=== PATIENT | male | born 1975 | race Caucasian/White ===

== ENCOUNTER 2019-12-31 13:50 | Inpatient (IN) ==
[2019-12-31] MEDS ORDERED: Isovue-370 500 ML BOTTLE IVP ONE (14:18)
[2019-12-31] MEDS ORDERED: *HR* FentaNYL (PF) 100 MCG/2 ML VIAL IVP ONE (14:19)
[2019-12-31] MEDS ORDERED: 0.9 % Sodium Chloride 1,000 ML IVC ONE ×4 (14:19→21:53)
[2019-12-31 14:34] LABS: Hemoglobin 16.3 g/dL (12.9-16.9); Mean Corpuscular HGB Conc 35.4 g/dL (31.6-35.5); Mean Corpuscular Volume 90.2 fL (83.0-100.0); Platelet Count 117 K/mcL (140-400); Red Cell Distribution Width 11.9 % (11.5-14.5); White Blood Count 23.7 K/mcL (4.3-11.1)
[2019-12-31 14:44] LABS: BUN/Creatinine Ratio 13 (6-26); Blood Urea Nitrogen 19 mg/dL (6-20); Calcium 8.3 mg/dL (8.6-10.3); Carbon Dioxide 17 mEq/L (23-29); Chloride 92 mEq/L (98-107); Glucose 141 mg/dL (70-105); Osmolality,Calculated 267 (280-300); Potassium 3.6 mEq/L (3.5-5.1); Sodium 126 mEq/L (136-145); eGFR For African Americans > 60 (> 60); eGFR For Non-African Americans 53 (> 60)
[2019-12-31 14:59] LABS: Troponin I 0.04 ng/mL (< 0.04)
[2019-12-31 15:07] LABS: Monocytes # 1.4 K/mcL (0.0-1.3); Neutrophils # 21.3 K/mcL (1.6-8.9); Platelet Estimate Slight Decrease (Normal)
[2019-12-31] MEDS ORDERED: Piperacillin/Tazobactam 3.375 GM in 0.9 % Sodium Chloride Mini Bag 100 ML IVPB ONE (15:56)
[2019-12-31] MEDS ORDERED: Clindamycin 600 MG/50 ML 600 MG/50 ML IV.SOLN IVPB STA (15:56)
[2019-12-31 16:07] LABS: Amphetamine Screen,Urine Negative ng/mL (Cutoff=1000); Barbiturate Screen,Urine Negative ng/mL (Cutoff=200); Benzodiazepines Screen,Urine Negative ng/mL (Cutoff=200); Cannabinoid Screen,Urine Negative ng/mL (Cutoff = 50); Cocaine Screen,Urine Negative ng/mL (Cutoff= 300); Opiate Screen,Urine Negative ng/mL (Cutoff=300); Phencyclidine Screen,Urine Negative ng/mL (Cutoff=25)
[2019-12-31 16:42] LABS: Alanine Aminotransferase 24 Units/L (7-52); Albumin 3.5 g/dL (3.5-5.7); Alkaline Phosphatase 77 Units/L (34-104); Aspartate Amino Transferase 43 Units/L (13-39); Bilirubin,Indirect 1.9 mg/dL (0.0-1.0); Bilirubin,Total 2.9 mg/dL (0.3-1.0); Globulin 3.6 g/dL (2.4-3.5); Lipase 9 Units/L (11-82); Total Protein 7.1 g/dL (6.4-8.9)
[2019-12-31] MEDS ORDERED: *HR* OxyCODONE Immed Rel 5 MG TABLET PO PRN (17:01)
[2019-12-31] MEDS ORDERED: Ondansetron 4 MG/2 ML VIAL IVP PRN (17:17)
[2019-12-31] MEDS ORDERED: Naloxone 0.4 MG/ML INJ IVP PRN (17:17)
[2019-12-31] MEDS: 0.9 % Sodium Chloride 1,000 ML IVC SCH (19:50)
[2020-01-01] MEDS ORDERED: 0.9 % Sodium Chloride 1,000 ML IVC ONE
[2020-01-01] MEDS: Clindamycin 600 MG/50 ML 600 MG/50 ML IV.SOLN IVPB SCH ×4 (00:01→23:14)
[2020-01-01] MEDS ORDERED: 0.9 % Sodium Chloride 500 ML IVC ONE (00:49)
[2020-01-01] MEDS: 0.9 % Sodium Chloride 1,000 ML IVC SCH ×2 (01:32→04:29)
[2020-01-01] MEDS ORDERED: Norepinephrine 4 MG/254 ML IV.SOLN IVC SCH ×2 (02:45→17:47)
[2020-01-01 03:18] LABS: VBG HCO3 21 mEq/L (21-27); VBG PCO2 37 mmHg (41-51); VBG PH 7.36 pH Units (7.32-7.42); VBG PO2 101 mmHg (25-50)
[2020-01-01 03:23] LABS: INR 2.1; Prothrombin Time 23.8 Seconds (9.4-12.1)
[2020-01-01 03:25] LABS: Hematocrit 35.3 % (37.5-50.1); Hemoglobin 12.3 g/dL (12.9-16.9); Immature Platelets 8.6 % (1.1-6.1); Mean Corpuscular HGB Conc 34.8 g/dL (31.6-35.5); Mean Corpuscular Hemoglobin 31.6 pg (28.0-33.3); Mean Corpuscular Volume 90.7 fL (83.0-100.0); Mean Platelet Volume 12.7 fL (9.4-12.4); Red Blood Count 3.89 M/mcL (4.19-5.50); Red Cell Distribution Width 12.1 % (11.5-14.5); White Blood Count 7.3 K/mcL (4.3-11.1)
[2020-01-01] MEDS: Vancomycin 1,250 MG/262.5 ML IV.SOLN IVPB SCH ×2 (03:25→15:34)
[2020-01-01 03:37] LABS: BUN/Creatinine Ratio 26 (6-26); Blood Urea Nitrogen 18 mg/dL (6-20); Calcium 6.8 mg/dL (8.6-10.3); Carbon Dioxide 21 mEq/L (23-29); Chloride 106 mEq/L (98-107); Glucose 137 mg/dL (70-105); Osmolality,Calculated 282 (280-300); Potassium 3.4 mEq/L (3.5-5.1); Sodium 134 mEq/L (136-145); eGFR For African Americans > 60 (> 60); eGFR For Non-African Americans > 60 (> 60)
[2020-01-01 03:38] LABS: Albumin 2.4 g/dL (3.5-5.7); Bilirubin,Total 1.7 mg/dL (0.3-1.0); Globulin 2.3 g/dL (2.4-3.5); Total Protein 4.7 g/dL (6.4-8.9)
[2020-01-01 03:41] LABS: Bilirubin,Direct 0.8 mg/dL (0.0-0.2); Bilirubin,Indirect 0.9 mg/dL (0.0-1.0)
[2020-01-01] MEDS ORDERED: Potassium Chloride 40 MEQ, Lidocaine 1% 2 ML in 0.9 % Sodium Chloride 500 ML IVPB ONE (04:05)
[2020-01-01 04:37] LABS: Platelet Count 58 K/mcL (140-400)
[2020-01-01 04:39] LABS: Lymphocytes # 0.4 K/mcL (0.6-4.6); Monocytes # 0.4 K/mcL (0.0-1.3); Neutrophils # 6.4 K/mcL (1.6-8.9)
[2020-01-01 04:40] LABS: Anisocytosis 1+ (Not Present); Burr Cells 1+ (Not Present); Macrocytosis Present (Not Present); Platelet Estimate Decreased (Normal); Polychromasia 1+ (Not Present); Toxic Vacuolation Present (Not Present)
[2020-01-01 05:16] LABS: Magnesium 1.8 mg/dL (1.6-2.6); Phosphorous 1.8 mg/dL (2.7-4.5)
[2020-01-01 05:17] LABS: VBG Ionized Calcium 0.99 mmol/L (1.15-1.35)
[2020-01-01] MEDS: Calcium Gluconate 1gm/50mL 1 GM/50 ML BAG IVPB PRN ×2 (05:53→15:37)
[2020-01-01] MEDS ORDERED: Perflutren Lipid Microsphere 1.3 ML in 0.9 % Sodium Chloride 8.7 ML IVP PRN ×2 (07:12→17:47)
[2020-01-01] MEDS: Piperacillin/Tazobactam 3.375 GM in 0.9 % Sodium Chloride Mini Bag 100 ML IVPB SCH ×4 (08:33→23:15)
[2020-01-01 13:53] LABS: Alanine Aminotransferase 18 Units/L (7-52); Albumin 2.5 g/dL (3.5-5.7); Alkaline Phosphatase 43 Units/L (34-104); Aspartate Amino Transferase 34 Units/L (13-39); BUN/Creatinine Ratio 29 (6-26); Bilirubin,Total 1.9 mg/dL (0.3-1.0); Blood Urea Nitrogen 20 mg/dL (6-20); Calcium 6.9 mg/dL (8.6-10.3); Carbon Dioxide 20 mEq/L (23-29); Chloride 106 mEq/L (98-107); Globulin 2.5 g/dL (2.4-3.5); Glucose 98 mg/dL (70-105); Magnesium 2.4 mg/dL (1.6-2.6); Osmolality,Calculated 283 (280-300); Phosphorous 2.4 mg/dL (2.7-4.5); Potassium 3.9 mEq/L (3.5-5.1); Sodium 135 mEq/L (136-145); eGFR For African Americans > 60 (> 60); eGFR For Non-African Americans > 60 (> 60)
[2020-01-01] MEDS ORDERED: *HR* Propofol 200 MG/20 ML VIAL IVP ONE (16:00)
[2020-01-01] MEDS ORDERED: Lidocaine -MPF 2% 2 ML VIAL ONE (16:00)
[2020-01-01] MEDS ORDERED: *HR* FentaNYL (PF) 100 MCG/2 ML VIAL ONE (16:00)
[2020-01-01] MEDS ORDERED: *HR* Midazolam HCl 2 MG/2 ML VIAL ONE (16:00)
[2020-01-01] MEDS ORDERED: Lidocaine -MPF 4% 5 ML AMPUL ONE (16:52)
[2020-01-01] MEDS ORDERED: Acetaminophen IV 1,000 MG/100 ML INFUS..BTL ONE (16:54)
[2020-01-01] MEDS ORDERED: Famotidine 20 MG/2 ML VIAL ONE (16:54)
[2020-01-01] MEDS ORDERED: *HR* Succinylcholine 200 MG/10 ML VIAL IVP ONE (17:01)
[2020-01-01] MEDS ORDERED: *HR* HYDROMORPHONE 2 MG/ML VIAL ONE (17:18)
[2020-01-01] MEDS ORDERED: Dexamethasone 4 MG/ML VIAL ONE (17:36)
[2020-01-01] MEDS ORDERED: Ondansetron 4 MG/2 ML VIAL ONE (17:36)
[2020-01-01] MEDS ORDERED: *HR* OxyCODONE Immed Rel 5 MG TABLET PO PRN (17:47)
[2020-01-01] MEDS ORDERED: Calcium Gluconate 1gm/50mL 1 GM/50 ML BAG IVPB PRN (17:47)
[2020-01-01] MEDS ORDERED: Ondansetron 4 MG/2 ML VIAL IVP PRN (17:47)
[2020-01-01] MEDS ORDERED: Naloxone 0.4 MG/ML INJ IVP PRN (17:47)
[2020-01-01] MEDS ORDERED: *HR* Heparin 5,000 UNIT/ML VIAL SQ SCH (18:00)
[2020-01-01] MEDS: *HR* Heparin 5,000 UNIT/ML VIAL SQ SCH (18:13)
[2020-01-02] MEDS ORDERED: Vancomycin 1,250 MG/262.5 ML IV.SOLN IVPB SCH (03:00)
[2020-01-02 04:20] LABS: VBG Ionized Calcium 1.03 mmol/L (1.15-1.35)
[2020-01-02 04:22] LABS: Hematocrit 31.2 % (37.5-50.1); Hemoglobin 10.3 g/dL (12.9-16.9); Immature Platelets 9.4 % (1.1-6.1); Mean Corpuscular Hemoglobin 30.6 pg (28.0-33.3); Mean Corpuscular Volume 92.6 fL (83.0-100.0); Mean Platelet Volume 12.4 fL (9.4-12.4); Monocytes # 0.3 K/mcL (0.0-1.3); Nucleated Red Blood Cells 0.3 /100 WBC (0); Red Blood Count 3.37 M/mcL (4.19-5.50); Red Cell Distribution Width 12.6 % (11.5-14.5)
[2020-01-02 04:43] LABS: Alanine Aminotransferase 18 Units/L (7-52); Albumin 2.2 g/dL (3.5-5.7); Alkaline Phosphatase 39 Units/L (34-104); Aspartate Amino Transferase 30 Units/L (13-39); BUN/Creatinine Ratio 37 (6-26); Bilirubin,Direct 0.9 mg/dL (0.0-0.2); Bilirubin,Indirect 0.6 mg/dL (0.0-1.0); Bilirubin,Total 1.5 mg/dL (0.3-1.0); Blood Urea Nitrogen 25 mg/dL (6-20); Calcium 7.1 mg/dL (8.6-10.3); Carbon Dioxide 25 mEq/L (23-29); Chloride 109 mEq/L (98-107); Globulin 2.3 g/dL (2.4-3.5); Glucose 140 mg/dL (70-105); Osmolality,Calculated 293 (280-300); Potassium 4.1 mEq/L (3.5-5.1); Sodium 138 mEq/L (136-145); Total Protein 4.5 g/dL (6.4-8.9); eGFR For African Americans > 60 (> 60); eGFR For Non-African Americans > 60 (> 60)
[2020-01-02] MEDS: *HR* Heparin 5,000 UNIT/ML VIAL SQ SCH ×2 (05:03→17:34)
[2020-01-02 05:12] LABS: Platelet Count 58 K/mcL (140-400)
[2020-01-02 05:34] LABS: Lymphocytes # 0.8 K/mcL (0.6-4.6); Neutrophils # 5.9 K/mcL (1.6-8.9); Platelet Estimate Decreased (Normal)
[2020-01-02] MEDS: Clindamycin 600 MG/50 ML 600 MG/50 ML IV.SOLN IVPB SCH ×3 (07:49→23:31)
[2020-01-02] MEDS: Piperacillin/Tazobactam 3.375 GM in 0.9 % Sodium Chloride Mini Bag 100 ML IVPB SCH (07:54)
[2020-01-02] MEDS ORDERED: Naloxone 0.4 MG/ML INJ IVP PRN (14:05)
[2020-01-02] MEDS ORDERED: Ondansetron 4 MG/2 ML VIAL IVP PRN (14:05)
[2020-01-02 14:38] LABS: Magnesium 2.8 mg/dL (1.6-2.6); Phosphorous 1.6 mg/dL (2.7-4.5)
[2020-01-02] MEDS ORDERED: Vancomycin 1,500 MG/265 ML IV.SOLN IVPB SCH (15:00)
[2020-01-02] MEDS: Vancomycin 1,500 MG/265 ML IV.SOLN IVPB SCH (15:42)
[2020-01-02] MEDS: *HR* OxyCODONE Immed Rel 5 MG TABLET PO PRN (19:45)
[2020-01-03] MEDS: *HR* OxyCODONE Immed Rel 5 MG TABLET PO PRN ×2 (02:35→20:10)
[2020-01-03] MEDS: *HR* Heparin 5,000 UNIT/ML VIAL SQ SCH ×2 (05:36→16:46)
[2020-01-03] MEDS: Vancomycin 1,500 MG/265 ML IV.SOLN IVPB SCH ×2 (05:46→15:38)
[2020-01-03 06:25] LABS: Hemoglobin 10.8 g/dL (12.9-16.9); Nucleated Red Blood Cells 0.3 /100 WBC (0)
[2020-01-03 06:26] LABS: Hematocrit 31.3 % (37.5-50.1); Immature Platelets 7.2 % (1.1-6.1); Mean Corpuscular HGB Conc 34.5 g/dL (31.6-35.5); Mean Corpuscular Hemoglobin 30.9 pg (28.0-33.3); Mean Corpuscular Volume 89.7 fL (83.0-100.0); Mean Platelet Volume 11.6 fL (9.4-12.4); Red Blood Count 3.49 M/mcL (4.19-5.50); Red Cell Distribution Width 12.6 % (11.5-14.5); White Blood Count 15.3 K/mcL (4.3-11.1)
[2020-01-03] MEDS: Clindamycin 600 MG/50 ML 600 MG/50 ML IV.SOLN IVPB SCH ×2 (06:35→14:47)
[2020-01-03 06:42] LABS: Platelet Count 89 K/mcL (140-400)
[2020-01-03 06:44] LABS: BUN/Creatinine Ratio 46 (6-26); Blood Urea Nitrogen 26 mg/dL (6-20); Calcium 7.2 mg/dL (8.6-10.3); Carbon Dioxide 26 mEq/L (23-29); Chloride 104 mEq/L (98-107); Glucose 111 mg/dL (70-105); Osmolality,Calculated 285 (280-300); Potassium 3.2 mEq/L (3.5-5.1); Sodium 135 mEq/L (136-145); eGFR For African Americans > 60 (> 60); eGFR For Non-African Americans > 60 (> 60)
[2020-01-03 07:04] LABS: Lymphocytes # 0.9 K/mcL (0.6-4.6); Neutrophils # 14.4 K/mcL (1.6-8.9)
[2020-01-03 07:05] LABS: Platelet Estimate Decreased (Normal)
[2020-01-03] MEDS: 0.9 % Sodium Chloride 1,000 ML IVC SCH ×2 (11:07→20:08)
[2020-01-04] MEDS: 0.9 % Sodium Chloride 1,000 ML IVC SCH ×2 (02:30→15:04)
[2020-01-04] MEDS: *HR* OxyCODONE Immed Rel 5 MG TABLET PO PRN (02:30)
[2020-01-04] MEDS: Vancomycin 1,500 MG/265 ML IV.SOLN IVPB SCH (02:36)
[2020-01-04 02:39] LABS: White Blood Count 10.2 K/mcL (4.3-11.1)
[2020-01-04 02:41] LABS: Hematocrit 29.8 % (37.5-50.1); Immature Platelets 5.2 % (1.1-6.1); Lymphocytes # 1.2 K/mcL (0.6-4.6); Mean Corpuscular HGB Conc 33.6 g/dL (31.6-35.5); Mean Corpuscular Volume 92.3 fL (83.0-100.0); Mean Platelet Volume 11.6 fL (9.4-12.4); Nucleated Red Blood Cells 0.4 /100 WBC (0); Red Blood Count 3.23 M/mcL (4.19-5.50); Red Cell Distribution Width 12.6 % (11.5-14.5)
[2020-01-04 02:45] LABS: Platelet Count 82 K/mcL (140-400)
[2020-01-04 02:54] LABS: BUN/Creatinine Ratio 39 (6-26); Blood Urea Nitrogen 19 mg/dL (6-20); Carbon Dioxide 26 mEq/L (23-29); Chloride 107 mEq/L (98-107); Glucose 92 mg/dL (70-105); Osmolality,Calculated 288 (280-300); Potassium 3.2 mEq/L (3.5-5.1); Sodium 138 mEq/L (136-145); eGFR For African Americans > 60 (> 60); eGFR For Non-African Americans > 60 (> 60)
[2020-01-04] MEDS: Vancomycin 1,750 MG/517.5 ML IV.SOLN IVPB SCH ×2 (03:18→16:12)
[2020-01-04] MEDS: *HR* Heparin 5,000 UNIT/ML VIAL SQ SCH ×2 (04:58→16:16)
[2020-01-04 05:16] LABS: Monocytes # 0.2 K/mcL (0.0-1.3); Neutrophils # 8.8 K/mcL (1.6-8.9); Platelet Estimate Decreased (Normal)
[2020-01-05] MEDS: Vancomycin 1,750 MG/517.5 ML IV.SOLN IVPB SCH (03:12)
[2020-01-05] MEDS: 0.9 % Sodium Chloride 1,000 ML IVC SCH ×2 (03:12→14:02)
[2020-01-05] MEDS: *HR* Heparin 5,000 UNIT/ML VIAL SQ SCH ×2 (06:46→17:57)
[2020-01-05 07:02] LABS: Hematocrit 32.5 % (37.5-50.1); Hemoglobin 11.1 g/dL (12.9-16.9); Mean Corpuscular HGB Conc 34.2 g/dL (31.6-35.5); Mean Corpuscular Hemoglobin 31.8 pg (28.0-33.3); Mean Corpuscular Volume 93.1 fL (83.0-100.0); Platelet Count 102 K/mcL (140-400); Red Blood Count 3.49 M/mcL (4.19-5.50); Red Cell Distribution Width 13.2 % (11.5-14.5)
[2020-01-05 07:11] LABS: BUN/Creatinine Ratio 25 (6-26); Blood Urea Nitrogen 12 mg/dL (6-20); Calcium 6.7 mg/dL (8.6-10.3); Carbon Dioxide 24 mEq/L (23-29); Chloride 106 mEq/L (98-107); Glucose 79 mg/dL (70-105); Osmolality,Calculated 281 (280-300); Potassium 3.4 mEq/L (3.5-5.1); Sodium 136 mEq/L (136-145); eGFR For African Americans > 60 (> 60); eGFR For Non-African Americans > 60 (> 60)
[2020-01-05 07:22] LABS: Anisocytosis 1+ (Not Present); Lymphocytes # 0.6 K/mcL (0.6-4.6); Monocytes # 0.3 K/mcL (0.0-1.3); Neutrophils # 12.6 K/mcL (1.6-8.9); Platelet Estimate Slight Decrease (Normal); Toxic Granulation Present (Not Present)
[2020-01-05] MEDS: *HR* OxyCODONE Immed Rel 5 MG TABLET PO PRN (09:00)
[2020-01-05] MEDS ORDERED: Simethicone 80 MG TAB.CHEW PO PRN (10:26)
[2020-01-05] MEDS: Lactobacillus 1 EACH CAP.SPRINK PO SCH ×2 (11:10→22:07)
[2020-01-05] MEDS: Vancomycin 1,500 MG/265 ML IV.SOLN IVPB SCH (16:43)
[2020-01-05] MEDS ORDERED: cefTRIAXone 1,000 MG in Water for inj. (sterile) 10 ML IVP SCH (19:00)
[2020-01-05] MEDS: cefTRIAXone 1,000 MG in Water for inj. (sterile) 10 ML IVP SCH (22:06)
[2020-01-06] MEDS: Vancomycin 1,500 MG/265 ML IV.SOLN IVPB SCH ×3 (00:31→10:42)
[2020-01-06] MEDS: *HR* Heparin 5,000 UNIT/ML VIAL SQ SCH ×2 (05:01→17:17)
[2020-01-06 07:02] LABS: Hemoglobin 10.6 g/dL (12.9-16.9)
[2020-01-06 07:04] LABS: Basophils # 0.1 K/mcL (0.0-0.2); Basophils % 0.7 %; Eosinophils # 0.1 K/mcL (0.0-0.6); Eosinophils % 1.3 %; Immature Granulocytes % 6.8 % (0-4); Immature Platelets 4.7 % (1.1-6.1); Lymphocytes # 1.1 K/mcL (0.6-4.6); Lymphocytes % 11.8 %; Mean Corpuscular HGB Conc 33.1 g/dL (31.6-35.5); Mean Corpuscular Hemoglobin 31.1 pg (28.0-33.3); Mean Corpuscular Volume 93.8 fL (83.0-100.0); Mean Platelet Volume 10.9 fL (9.4-12.4); Monocytes # 0.3 K/mcL (0.0-1.3); Monocytes % 3.4 %; Nucleated Red Blood Cells 0.2 /100 WBC (0); Red Blood Count 3.41 M/mcL (4.19-5.50); Red Cell Distribution Width 13.6 % (11.5-14.5); White Blood Count 9.2 K/mcL (4.3-11.1)
[2020-01-06 07:11] LABS: Platelet Count 88 K/mcL (140-400)
[2020-01-06 07:16] LABS: INR 1.8; Prothrombin Time 20.6 Seconds (9.4-12.1)
[2020-01-06 07:23] LABS: Albumin 2.1 g/dL (3.5-5.7)
[2020-01-06 07:24] LABS: BUN/Creatinine Ratio 27 (6-26); Blood Urea Nitrogen 13 mg/dL (6-20); Calcium 7.3 mg/dL (8.6-10.3); Carbon Dioxide 26 mEq/L (23-29); Chloride 107 mEq/L (98-107); Glucose 76 mg/dL (70-105); Osmolality,Calculated 285 (280-300); Potassium 4.1 mEq/L (3.5-5.1); Sodium 138 mEq/L (136-145); eGFR For African Americans > 60 (> 60); eGFR For Non-African Americans > 60 (> 60)
[2020-01-06] MEDS: Furosemide 40 MG TABLET PO SCH (09:40)
[2020-01-06] MEDS: Lactobacillus 1 EACH CAP.SPRINK PO SCH ×2 (09:40→19:48)
[2020-01-06] MEDS: Vancomycin 1,750 MG/517.5 ML IV.SOLN IVPB SCH (10:40)
[2020-01-06 10:58] LABS: Albumin/Globulin Ratio 0.7 (1.1-2.2); Bilirubin,Direct 0.5 mg/dL (0.0-0.2); Bilirubin,Indirect 0.7 mg/dL (0.0-1.0); Bilirubin,Total 1.2 mg/dL (0.3-1.0); Globulin 2.9 g/dL (2.4-3.5)
[2020-01-06] MEDS ORDERED: Lactulose Oral Soln 20 GM/30 ML UDC PO ONE (11:04)
[2020-01-06] MEDS: Albumin 25% 25gram/100mL 25 GM/100 ML IV.SOLN IVPB SCH ×3 (11:40→19:50)
[2020-01-06] MEDS: cefTRIAXone 1,000 MG in Water for inj. (sterile) 10 ML IVP SCH (17:17)
[2020-01-06] MEDS: Vancomycin 2,000 MG/520 ML IV.SOLN IVPB SCH (21:19)
[2020-01-07] MEDS: Albumin 25% 25gram/100mL 25 GM/100 ML IV.SOLN IVPB SCH ×4 (00:22→19:40)
[2020-01-07 00:40] LABS: RBC,Peritoneal Fluid < 2000 RBC/mcL
[2020-01-07 01:16] LABS: Amylase,Peritoneal Fluid 62 Units/L (No Ref Range); Basophils,Peritoneal Fluid 0 %; Eosinophils,Peritoneal Fluid 0 %; Glucose,Peritoneal Fluid 87 mg/dL (No Ref Range); LDH,Peritoneal Fluid < 25 Units/L (No Ref Range); Total Protein,Peritoneal Fluid < 2.0 g/dL
[2020-01-07 01:17] LABS: Appearance of Peritoneal Fl CLEAR (Clear)
[2020-01-07 01:23] LABS: Red Cell Distribution Width 13.4 % (11.5-14.5)
[2020-01-07 01:25] LABS: Hematocrit 27.8 % (37.5-50.1); Hemoglobin 9.2 g/dL (12.9-16.9); Immature Platelets 4.5 % (1.1-6.1); Mean Corpuscular HGB Conc 33.1 g/dL (31.6-35.5); Mean Corpuscular Hemoglobin 31.4 pg (28.0-33.3); Mean Corpuscular Volume 94.9 fL (83.0-100.0); Mean Platelet Volume 10.8 fL (9.4-12.4); Monocytes # 0.2 K/mcL (0.0-1.3); Nucleated Red Blood Cells 0.4 /100 WBC (0); Red Blood Count 2.93 M/mcL (4.19-5.50); White Blood Count 5.1 K/mcL (4.3-11.1)
[2020-01-07 01:39] LABS: BUN/Creatinine Ratio 26 (6-26); Blood Urea Nitrogen 13 mg/dL (6-20); Calcium 7.8 mg/dL (8.6-10.3); Carbon Dioxide 29 mEq/L (23-29); Chloride 107 mEq/L (98-107); Glucose 89 mg/dL (70-105); Osmolality,Calculated 288 (280-300); Potassium 3.5 mEq/L (3.5-5.1); Sodium 139 mEq/L (136-145); eGFR For African Americans > 60 (> 60); eGFR For Non-African Americans > 60 (> 60)
[2020-01-07 01:47] LABS: Platelet Count 92 K/mcL (140-400)
[2020-01-07 02:45] LABS: Basophils # 0.2 K/mcL (0.0-0.2); Lymphocytes # 0.9 K/mcL (0.6-4.6); Neutrophils # 3.7 K/mcL (1.6-8.9)
[2020-01-07 02:46] LABS: Platelet Estimate Slight Decrease (Normal)
[2020-01-07] MEDS: *HR* Heparin 5,000 UNIT/ML VIAL SQ SCH ×2 (04:58→17:51)
[2020-01-07 08:54] LABS: Alanine Aminotransferase 18 Units/L (7-52); Albumin 2.8 g/dL (3.5-5.7); Albumin/Globulin Ratio 1.1 (1.1-2.2); Alkaline Phosphatase 63 Units/L (34-104); Aspartate Amino Transferase 29 Units/L (13-39); Bilirubin,Direct 0.5 mg/dL (0.0-0.2); Bilirubin,Indirect 0.7 mg/dL (0.0-1.0); Bilirubin,Total 1.2 mg/dL (0.3-1.0); Globulin 2.5 g/dL (2.4-3.5); Total Protein 5.3 g/dL (6.4-8.9)
[2020-01-07] MEDS: Vancomycin 2,000 MG/520 ML IV.SOLN IVPB SCH ×2 (09:05→21:57)
[2020-01-07] MEDS: *HR* OxyCODONE Immed Rel 5 MG TABLET PO PRN (09:06)
[2020-01-07] MEDS: Furosemide 40 MG TABLET PO SCH (09:07)
[2020-01-07] MEDS: Lactobacillus 1 EACH CAP.SPRINK PO SCH ×2 (09:07→21:58)
[2020-01-07] MEDS: Famotidine 20 MG TABLET PO SCH ×2 (14:08→21:58)
[2020-01-07] MEDS ORDERED: Albumin 25% 25gram/100mL 25 GM/100 ML IV.SOLN IVPB SCH (14:15)
[2020-01-07] MEDS: cefTRIAXone 1,000 MG in Water for inj. (sterile) 10 ML IVP SCH (17:51)
[2020-01-07 18:00] LABS: Fluid Source for Albumin PERITONEAL FL
[2020-01-08] MEDS: Albumin 25% 25gram/100mL 25 GM/100 ML IV.SOLN IVPB SCH ×4 (01:08→19:36)
[2020-01-08 02:22] LABS: Mean Corpuscular HGB Conc 32.6 g/dL (31.6-35.5); Mean Corpuscular Volume 95.8 fL (83.0-100.0); Red Cell Distribution Width 13.8 % (11.5-14.5)
[2020-01-08 02:24] LABS: Basophils % 0.3 %; Eosinophils # 0.1 K/mcL (0.0-0.6); Eosinophils % 2.1 %; Hematocrit 27.3 % (37.5-50.1); Hemoglobin 8.9 g/dL (12.9-16.9); Immature Granulocytes % 3.4 % (0-4); Immature Platelets 3.2 % (1.1-6.1); Lymphocytes # 1.2 K/mcL (0.6-4.6); Lymphocytes % 30.4 %; Mean Corpuscular Hemoglobin 31.2 pg (28.0-33.3); Mean Platelet Volume 10.3 fL (9.4-12.4); Monocytes # 0.2 K/mcL (0.0-1.3); Neutrophils # 2.2 K/mcL (1.6-8.9); Red Blood Count 2.85 M/mcL (4.19-5.50); Segmented Neutrophils % 58.8 %; White Blood Count 3.8 K/mcL (4.3-11.1)
[2020-01-08 02:28] LABS: Platelet Count 86 K/mcL (140-400)
[2020-01-08 02:41] LABS: Albumin 3.4 g/dL (3.5-5.7); Albumin/Globulin Ratio 1.6 (1.1-2.2); BUN/Creatinine Ratio 26 (6-26); Bilirubin,Direct 0.5 mg/dL (0.0-0.2); Bilirubin,Indirect 0.5 mg/dL (0.0-1.0); Blood Urea Nitrogen 15 mg/dL (6-20); Calcium 8.2 mg/dL (8.6-10.3); Carbon Dioxide 30 mEq/L (23-29); Chloride 105 mEq/L (98-107); Globulin 2.1 g/dL (2.4-3.5); Glucose 117 mg/dL (70-105); Osmolality,Calculated 292 (280-300); Potassium 3.5 mEq/L (3.5-5.1); Sodium 140 mEq/L (136-145); Total Protein 5.5 g/dL (6.4-8.9); eGFR For African Americans > 60 (> 60); eGFR For Non-African Americans > 60 (> 60)
[2020-01-08] MEDS: *HR* Heparin 5,000 UNIT/ML VIAL SQ SCH (05:19)
[2020-01-08] MEDS: Furosemide 40 MG TABLET PO SCH (08:24)
[2020-01-08] MEDS: Famotidine 20 MG TABLET PO SCH (08:24)
[2020-01-08] MEDS: Lactobacillus 1 EACH CAP.SPRINK PO SCH ×2 (08:24→22:05)
[2020-01-08] MEDS: Vancomycin 2,000 MG/520 ML IV.SOLN IVPB SCH ×2 (09:48→22:05)
[2020-01-08 12:04] LABS: Hepatitis A Antibody IgM Nonreactive (Nonreactive); Hepatitis B Core IgM Nonreactive (Nonreactive)
[2020-01-08 12:58] LABS: Hepatitis B Surface Antigen Reactive (Nonreactive)
[2020-01-08 13:14] LABS: Hepatitis C Virus Antibody Reactive (Nonreactive)
[2020-01-08] MEDS: cefTRIAXone 1,000 MG in Water for inj. (sterile) 10 ML IVP SCH (19:36)
[2020-01-09] MEDS: Albumin 25% 25gram/100mL 25 GM/100 ML IV.SOLN IVPB SCH (00:45)
[2020-01-09 05:17] LABS: Basophils % 0.3 %; Hematocrit 26.5 % (37.5-50.1); Immature Granulocytes % 1.6 % (0-4); Mean Corpuscular Volume 95.3 fL (83.0-100.0); Red Blood Count 2.78 M/mcL (4.19-5.50); Red Cell Distribution Width 13.9 % (11.5-14.5)
[2020-01-09 05:19] LABS: Eosinophils % 0.8 %; Hemoglobin 8.6 g/dL (12.9-16.9); Immature Platelets 3.9 % (1.1-6.1); Lymphocytes % 26.4 %; Mean Corpuscular HGB Conc 32.5 g/dL (31.6-35.5); Mean Corpuscular Hemoglobin 30.9 pg (28.0-33.3); Mean Platelet Volume 10.5 fL (9.4-12.4); Monocytes # 0.2 K/mcL (0.0-1.3); Monocytes % 6.4 %; Segmented Neutrophils % 64.5 %; White Blood Count 3.8 K/mcL (4.3-11.1)
[2020-01-09 05:23] LABS: Neutrophils # 2.5 K/mcL (1.6-8.9); Platelet Count 85 K/mcL (140-400)
[2020-01-09 05:38] LABS: Albumin 3.8 g/dL (3.5-5.7); Albumin/Globulin Ratio 1.9 (1.1-2.2); BUN/Creatinine Ratio 31 (6-26); Bilirubin,Direct 0.5 mg/dL (0.0-0.2); Bilirubin,Indirect 0.9 mg/dL (0.0-1.0); Bilirubin,Total 1.4 mg/dL (0.3-1.0); Blood Urea Nitrogen 18 mg/dL (6-20); Calcium 8.8 mg/dL (8.6-10.3); Carbon Dioxide 31 mEq/L (23-29); Chloride 106 mEq/L (98-107); Glucose 94 mg/dL (70-105); Osmolality,Calculated 296 (280-300); Potassium 4.2 mEq/L (3.5-5.1); Sodium 142 mEq/L (136-145); Total Protein 5.8 g/dL (6.4-8.9); eGFR For African Americans > 60 (> 60); eGFR For Non-African Americans > 60 (> 60)
[2020-01-09 05:57] LABS: Ferritin 158 ng/mL (20-250); Iron 59 mcg/dL (65-175); Transferrin < 75 mg/dL (203-362)
[2020-01-09 06:02] LABS: Folate 14.1 ng/mL (3.0-16.0)
[2020-01-09] MEDS: Lactobacillus 1 EACH CAP.SPRINK PO SCH ×2 (08:02→20:07)
[2020-01-09] MEDS: Furosemide 40 MG TABLET PO SCH (08:03)
[2020-01-09] MEDS: Vancomycin 2,000 MG/520 ML IV.SOLN IVPB SCH ×2 (10:09→20:10)
[2020-01-09] MEDS: Iron Sucrose Complex 200 MG in 0.9 % Sodium Chloride 100 ML IVPB SCH (13:35)
[2020-01-09 14:55] LABS: HCV Quant Log NOT DETECTED log IU/mL
[2020-01-09 16:05] LABS: HCV Quant Interpretation NOT DETECTED (Not Detected)
[2020-01-09] MEDS: cefTRIAXone 1,000 MG in Water for inj. (sterile) 10 ML IVP SCH (18:46)
[2020-01-10 05:55] LABS: Albumin 3.7 g/dL (3.5-5.7); Albumin/Globulin Ratio 1.5 (1.1-2.2); Bilirubin,Direct 0.5 mg/dL (0.0-0.2); Bilirubin,Indirect 0.9 mg/dL (0.0-1.0); Bilirubin,Total 1.4 mg/dL (0.3-1.0); Globulin 2.4 g/dL (2.4-3.5); Total Protein 6.1 g/dL (6.4-8.9)
[2020-01-10] MEDS: Vancomycin 2,000 MG/520 ML IV.SOLN IVPB SCH (09:21)
[2020-01-10] MEDS: Lactobacillus 1 EACH CAP.SPRINK PO SCH ×2 (09:22→21:41)
[2020-01-10] MEDS: Furosemide 40 MG TABLET PO SCH (09:22)
[2020-01-10 11:05] LABS: BUN/Creatinine Ratio 32 (6-26); Blood Urea Nitrogen 16 mg/dL (6-20); Carbon Dioxide 25 mEq/L (23-29); Chloride 104 mEq/L (98-107); Glucose 124 mg/dL (70-105); Osmolality,Calculated 285 (280-300); Potassium 4.3 mEq/L (3.5-5.1); Sodium 136 mEq/L (136-145); eGFR For African Americans > 60 (> 60); eGFR For Non-African Americans > 60 (> 60)
[2020-01-10 11:17] LABS: Hemoglobin 9.9 g/dL (12.9-16.9); Mean Corpuscular Volume 95.2 fL (83.0-100.0)
[2020-01-10 11:19] LABS: Basophils % 0.3 %; Eosinophils # 0.1 K/mcL (0.0-0.6); Hematocrit 29.8 % (37.5-50.1); Immature Granulocytes % 0.5 % (0-4); Immature Platelets 3.8 % (1.1-6.1); Lymphocytes # 0.9 K/mcL (0.6-4.6); Lymphocytes % 15.6 %; Mean Corpuscular HGB Conc 33.2 g/dL (31.6-35.5); Mean Corpuscular Hemoglobin 31.6 pg (28.0-33.3); Mean Platelet Volume 10.6 fL (9.4-12.4); Monocytes # 0.4 K/mcL (0.0-1.3); Monocytes % 6.6 %; Neutrophils # 4.6 K/mcL (1.6-8.9); Red Blood Count 3.13 M/mcL (4.19-5.50); Red Cell Distribution Width 13.9 % (11.5-14.5)
[2020-01-10 11:23] LABS: Platelet Count 93 K/mcL (140-400)
[2020-01-10] MEDS: Iron Sucrose Complex 200 MG in 0.9 % Sodium Chloride 100 ML IVPB SCH (11:30)
[2020-01-10] MEDS: Doxycycline 100 MG CAPSULE PO SCH (21:41)
[2020-01-11] MEDS: Lactobacillus 1 EACH CAP.SPRINK PO SCH ×2 (08:52→20:37)
[2020-01-11] MEDS: Doxycycline 100 MG CAPSULE PO SCH ×2 (08:52→20:37)
[2020-01-11] MEDS: Furosemide 40 MG TABLET PO SCH (08:52)
[2020-01-11 17:04] LABS: Adenovirus Not Detected (Not Detect); Bordetella Pertussis Not Detected (Not Detect); Chlamydophila pneumoniae Not Detected (Not Detect); Coronavirus 229E Not Detected (Not Detect); Coronavirus HKU1 Not Detected (Not Detect); Coronavirus NL63 Not Detected (Not Detect); Coronavirus OC43 Not Detected (Not Detect); Human Metapneumovirus Not Detected (Not Detect); Human Rhinovirus/Enterovirus Not Detected (Not Detect); Influenza A Subtype 2009 H1 Not Detected (Not Detect); Influenza B Not Detected (Not Detect); Mycoplasma pneumoniae Not Detected (Not Detect); Parainfluenza Virus 1 Not Detected (Not Detect); Parainfluenza Virus 2 Not Detected (Not Detect); Parainfluenza Virus 3 Not Detected (Not Detect); Parainfluenza Virus 4 Not Detected (Not Detect); Respiratory Syncytial Virus Not Detected (Not Detect); SARS-CoV-2 Not Detected (Not Detect)
[2020-01-12] MEDS: Doxycycline 100 MG CAPSULE PO SCH ×2 (10:10→21:50)
[2020-01-12] MEDS: Lactobacillus 1 EACH CAP.SPRINK PO SCH ×2 (10:10→21:49)
[2020-01-12] MEDS: Furosemide 40 MG TABLET PO SCH (10:11)
[2020-01-13] MEDS: Doxycycline 100 MG CAPSULE PO SCH (09:31)
[2020-01-13] MEDS: Furosemide 40 MG TABLET PO SCH (09:31)
[2020-01-13] MEDS: Lactobacillus 1 EACH CAP.SPRINK PO SCH (09:31)
[2020-01-13 10:55] VITALS: BP 105/64
== END 2020-01-13 11:37 | disposition home or self-care (01) | DRG 720 ==
LOC: EMEROOARM 13:50 → 3ANU 13:50 → SUATTDRO 16:41 → 3ANU 19:00 → ICNU 01-01 02:38 → SUATTDRO 01-02 09:26 → 3ANU 01-02 16:46
PROVIDERS: ADMIT Family Medicine; ATTEND General Practice